=== PATIENT | male | born 1965 | race Caucasian/White ===

== ENCOUNTER → 2024-05-03 11:01 | Outpatient (REF) | payer OTHER, SELFPAY ==
--- NOTE | 2024-05-03 13:27 | EEG.RPT ---
Electroencephalogram Report
Recording
Date of EE05/03/24
Type of EEG: Routine
Length of EEG recordin minutes
Done with Video Recording: Yes
Patient Status: Outpatient
Recording Conditions: Awake, Drowsy and Asleep
Hyperventilation Performed: Yes
Photic Stimulation Performed: Yes
Report
LESS THAN 1 HOUR EEG INTERPRETATION:
Unremarkable EEG for age
CLINICAL CORRELATION:
A normal EEG does not rule out a diagnosis of epilepsy. If clinical suspicion for seizure persists, a prolonged recording may be warranted.
Clinical correlation is advised.
METHODS:
A 21 channel digitized electroencephalogram (EEG) was performed using the 10/20 international system of electrode placement and one-lead of ECG recorded. The [employer] quantitative EEG system was utilized.
ELECTROENCEPHALOGRAPHER IMPRESSION(S):
Quality of study
Good
Background
There was an unremarkable anterior-posterior voltage gradient of alpha frequency.
With eye opening the background activity changed to a low voltage mixture of frequencies.
There were no significant asymmetries of background activity noted.
Sleep
Drowsiness present
Stage 1 present
Stage 2 present
Hyperventilation
No activation
Photic Stimulation
No activation
ECG
Normal sinus rhythm
== END ==
LOC: EEG 11:01
PROVIDERS: ATTENDING PHYSICIAN Psychiatry & Neurology Neurology; FAMILY PHYSICIAN Internal Medicine
DX: R56.9 Unspecified convulsions (principal); R41.3 Other amnesia
CPT/HCPCS: 95812

== ENCOUNTER → 2024-05-12 07:32 | Outpatient (REF) | payer OTHER, SELFPAY | LOC: HWRAD 07:32 | PROVIDERS: ATTENDING PHYSICIAN Psychiatry & Neurology Neurology | DX: S09.90XS Unspecified injury of head, sequela (principal); R41.3 Other amnesia | CPT/HCPCS: 70450 ==

== ENCOUNTER → 2024-05-27 07:55 | Outpatient (REF) | payer OTHER, SELFPAY | LOC: PAVMRI 07:55 | PROVIDERS: ATTENDING PHYSICIAN Psychiatry & Neurology Neurology | DX: I63.9 Cerebral infarction, unspecified (principal) | CPT/HCPCS: 70551 ==

== ENCOUNTER → 2025-04-20 07:09 | Outpatient (REF) | payer OTHER, SELFPAY ==
--- NOTE | 2025-04-20 11:14 | EEG.RPT ---
Electroencephalogram Report
Recording
Date of EE04/20/25
Type of EEG: Routine
Length of EEG recordin minutes
Done with Video Recording: Yes
Patient Status: Outpatient
Recording Conditions: Awake, Drowsy and Asleep
Hyperventilation Performed: Yes
Photic Stimulation Performed: Yes
Report
LESS THAN 1 HOUR EEG INTERPRETATION:
Unremarkable EEG for age
CLINICAL CORRELATION:
A normal EEG does not rule out a diagnosis of epilepsy. If clinical suspicion for seizure persists, a prolonged recording may be warranted.
Clinical correlation is advised.
METHODS:
A 21 channel digitized electroencephalogram (EEG) was performed using the 10/20 international system of electrode placement and one-lead of ECG recorded. The [employer] quantitative EEG system was utilized.
ELECTROENCEPHALOGRAPHER IMPRESSION(S):
Quality of study
Good
Background
There was an unremarkable anterior-posterior voltage gradient of alpha frequency.
With eye opening the background activity changed to a low voltage mixture of frequencies.
There were no significant asymmetries of background activity noted.
Sleep
Drowsiness present
Stage 1 present
Hyperventilation
No activation
Photic Stimulation
No activation
ECG
Normal sinus rhythm
== END ==
LOC: EEG 07:09
PROVIDERS: ATTENDING PHYSICIAN Psychiatry & Neurology Neurology; FAMILY PHYSICIAN Internal Medicine
DX: R56.9 Unspecified convulsions (principal); R41.3 Other amnesia
CPT/HCPCS: 95812

== ENCOUNTER → 2025-05-03 17:19 | Outpatient (REF) | payer OTHER, SELFPAY | LOC: PAVMRI 17:19 | PROVIDERS: ATTENDING PHYSICIAN Psychiatry & Neurology Neurology | DX: R56.9 Unspecified convulsions (principal); R41.0 Disorientation, unspecified | CPT/HCPCS: 70551 ==